=== PATIENT | male | born 1950 | race Caucasian/White ===

== ENCOUNTER 2020-05-30 10:58 | Day surgery (SDC) | payer OTHER ==
[~2020-05-30] VITALS: Ht 12.8 cm; Wt 88.6 kg
[~2020-05-30 10:58] MED LIST: Cipro500 MG PO; HYDCHL12.5 PO; METH10; OXYC10TA19
== END 2020-05-30 12:29 | disposition home or self-care (01) ==
LOC: ORSCSDS 10:58
PROVIDERS: Internal Medicine Gastroenterology
PROC: 0DJD8ZZ Inspection of Lower Intestinal Tract, Via Natural or Artificial Opening Endoscopic (ICD-10-PCS; principal; 2020-05-30 12:15)
DX: R19.5 Other fecal abnormalities (principal); K64.8 Other hemorrhoids; K57.30 Diverticulosis of large intestine without perforation or abscess without bleeding; F32.9 Major depressive disorder, single episode, unspecified; I10 Essential (primary) hypertension; E66.9 Obesity, unspecified; Z68.31 Body mass index [BMI] 31.0-31.9, adult; Z79.899 Other long term (current) drug therapy
CPT/HCPCS: J2250; J2704; J7120

== ENCOUNTER → 2021-01-15 | Outpatient (CLI) | payer OTHER ==
[2021-01-15 10:26] LABS: Source, Urine Clean Catch
[2021-01-15 13:16] LABS: Appearance, Urine Clear (Clear); Bilirubin, Urine Neg (Neg); Blood, Urine Neg (Neg); Color, Urine Yellow (P-Yellow); Glucose Qualitative, Urine Neg (Neg); Ketones, Urine Neg (Neg); Leukocyte Esterase, Urine Neg (Neg); Nitrite, Urine Neg (Neg); Protein, Urine Neg (Neg); Specific Gravity, Urine 1.015 (1.003-1.022); Urobilinogen, Urine NORM (Normal)
== END | disposition home or self-care (01) ==
LOC: LAB SHORT 10:25 → LAB 10:25 → LAB FUT 01-12 15:35
PROVIDERS: Physician Assistant
DX: N39.0 Urinary tract infection, site not specified (principal)
CPT/HCPCS: 81003; 87086

== ENCOUNTER → 2021-04-04 | Outpatient (CLI) | payer OTHER | END | disposition home or self-care (01) | LOC: LAB SHORT 14:30 → LAB 14:30 | DX: S80.812A Abrasion, left lower leg, initial encounter (principal) | CPT/HCPCS: 87070; 87205 ==

== ENCOUNTER → 2023-01-08 | Outpatient (CLI) | payer OTHER | END | disposition home or self-care (01) | LOC: LAB SHORT 09:46 → LAB 09:46 | DX: T81.89XA Other complications of procedures, not elsewhere classified, initial encounter (principal) | CPT/HCPCS: 87070 ==

== ENCOUNTER → 2025-09-06 | Outpatient (CLI) | payer OTHER ==
[2025-09-06 15:28] LABS: Hematocrit 45.6 % (37.0-53.0); Hemoglobin 15.3 g/dL (13.5-17.5); Mean Corpuscular HGB Conc 33.6 g/dL (31.5-36.5); Mean Corpuscular Volume 96 fL (80-100); NRBC ABSOLUTE 0.00 K/mm3 (0.00-0.02); NRBC Auto 0.0 /100 WBC (0.0-0.2); Platelet Count 272 K/mm3 (150-400); RDW Coefficient Variation 13.0 % (11.7-14.2); RDW Standard Deviation 46.7 fL (35.1-46.3)
[2025-09-07 04:29] LABS: Alanine Aminotransfer (ALT/SGP 23 U/L (12-78); Albumin, Blood 3.9 g/dL (3.4-5.0); Albumin/Globulin Ratio 1.4 (0.8-1.8); Anion Gap 10 mmol/L (3-11); Aspartate Aminotrans (AST/SGOT 15 U/L (12-37); Bilirubin, Direct 0.2 mg/dL (0.0-0.3); Bilirubin, Indirect 0.5 mg/dL (0.1-0.7); Bilirubin, Total 0.7 mg/dL (0.1-1.0); Blood Urea Nitrogen 15 mg/dL (8-24); CHOL/HDL RATIO 3.8; CO2, Blood 27 mmol/L (21-32); Calcium, Blood 9.0 mg/dL (8.5-10.1); Chloride, Blood 102 mmol/L (98-108); Cholesterol 163 mg/dL (50-200); Creatinine, Blood 0.75 mg/dL (0.60-1.20); Globulin, Blood 2.7 g/dL (2.2-4.0); Glucose, Blood 77 mg/dL (70-99); HDL Cholesterol 43 mg/dL (>39); LDL/HDL RATIO 2.1; Low Density Lipoprotein Chol 90 mg/dL (0-110); Magnesium, Blood 2.4 mg/dL (1.6-2.4); PSA, %Free 25.2 %; PSA, Free 1.240 ng/mL; Phosphorus, Blood 3.3 mg/dL (2.5-4.9); Potassium, Blood 4.3 mmol/L (3.5-5.5); Prostate Specific Antigen 4.930 ng/mL (0.000-4.000); Sodium, Blood 135 mmol/L (136-145); Total Protein, Blood 6.6 g/dL (6.4-8.2); Triglycerides 152 mg/dL (30-160); Very Low Density Lipoprot Chol 30 mg/dL (6-32)
== END ==
LOC: LAB 12:00 → LAB SHORT 12:00
PROVIDERS: Internal Medicine
DX: R42 Dizziness and giddiness (principal); E78.1 Pure hyperglyceridemia; I10 Essential (primary) hypertension; N40.0 Benign prostatic hyperplasia without lower urinary tract symptoms
CPT/HCPCS: 80053; 80061; 82248; 83735; 84100; 84153; 84154; 85027